=== PATIENT | male | born 1975 | race Caucasian/White ===

== ENCOUNTER 2019-05-28 06:09 | Emergency (ER) | payer BC, SELFPAY ==
[2019-05-28] MEDS ORDERED: Acetaminophen 500 MG TAB ONE (06:37)
[2019-05-28 06:39] LABS: #Basophils 0.1 thou/uL (0.0-0.2); #Lymphocytes 0.4 thou/uL (1.20-3.40); #Monocytes 0.5 thou/uL (0.11-0.59); #Neutrophils 10.3 thou/uL (1.40-6.50); %Basophils 0.8 % (0.0-1.0); %Eosinophils 0.1 % (0.0-10.0); %Lymphocytes 3.6 % (21.0-51.0); %Monocytes 4.6 % (0.0-10.0); Hemoglobin 15.1 g/dL (14.0-18.0); Mean Corpuscular HGB CONC 31.3 g/dL (32.0-36.0); Mean Corpuscular Hemoglobin 28.2 pg (27.0-31.0); Mean Platelet Volume 7.9 fL (7.4-10.4); Platelet Count 268 thou/uL (130-400); RBC Distribution Width 13.2 % (11.5-14.5); Red Blood Cell (RBC) Count 5.34 mill/uL (4.70-6.10); White Blood Cell (WBC) Count 11.3 thou/uL (4.8-10.8)
[2019-05-28] MEDS ORDERED: methylPREDNISolone Sod Succ/PF 125 MG/2 ML VIAL ONE (06:40)
[2019-05-28] MEDS ORDERED: Albuterol Sulfate 2.5 mg/0.5 ml Neb ONE (06:40)
[2019-05-28] MEDS ORDERED: Sodium Chloride For Inhalation 0.9% 3 ML NEB ONE ×2 (06:40→06:44)
[2019-05-28] MEDS ORDERED: Lactated Ringer's 1,000 ML ONE (06:51)
[2019-05-28 07:17] LABS: Globulin 3.5 g/dL (2.4-3.5)
[2019-05-28 07:22] LABS: AST (SGOT) 36 U/L (5-34); Estimated GFR-MDRD 7
[2019-05-28] MEDS ORDERED: Oseltamivir 75 MG CAP ONE (07:39)
--- NOTE | 2019-05-28 07:45 | RAD ---
EXAM: Single view of the chest HISTORY: Cough COMPARISON: 08/15/2014 FINDINGS: Single view of the chest shows a normal sized cardiomediastinal silhouette. There is no mello dence of consolidation, mass, or pleural effusion. The bones are unremarkable. IMPRESSION: No evidence of acute cardiopulmonary disease
[2019-05-28 07:58] LABS: Sodium 134 mmol/L (136-145)
[2019-05-28 07:59] LABS: Carbon Dioxide 26 mmol/L (22-29); Chloride 96 mmol/L (98-107)
[2019-05-28 08:00] LABS: BUN (Urea Nitrogen) 6 mg/dL (8.9-20.6)
[2019-05-28 08:01] LABS: Bilirubin, Total 0.3 mg/dL (0.2-1.2); Calcium 8.9 mg/dL (7.8-10.44); Glucose 133 mg/dL (70-105)
[2019-05-28 08:02] LABS: Alkaline Phosphatase 70 U/L (40-110); Protein, Total 7.5 g/dL (6.0-8.3)
[2019-05-28 08:03] LABS: ALT (SGPT) 50 U/L (8-55)
[2019-05-28 08:05] LABS: Anion Gap 16 mmol/L (10-20)
[2019-05-28 08:07] LABS: Calc. Creatinine Clearance 0 mL/min (70-130)
[2019-05-28] MEDS ORDERED: Cefepime 1 GM VIAL ONE (08:39)
[2019-05-28] MEDS ORDERED: Sodium Chloride 0.9% 100 ML ONE (08:39)
[2019-05-28] MEDS ORDERED: Sodium Chloride 0.9% 2,000 ML ONE (09:54)
== END 2019-05-28 09:23 | disposition short-term general hospital (02) ==
LOC: NAV ERS 06:09
DX: J11.1 Influenza due to unidentified influenza virus with other respiratory manifestations (principal); N17.9 Acute kidney failure, unspecified; R09.02 Hypoxemia; K21.9 Gastro-esophageal reflux disease without esophagitis; F17.210 Nicotine dependence, cigarettes, uncomplicated; Z79.51 Long term (current) use of inhaled steroids
CPT/HCPCS: 36415; 71045; 80053; 83605; 85025; 87040; 87077; 87149; 87186; 87804; 93005; 94760; J0692; J2930; J3490; J7050; J7120; J7611; J7620

== ENCOUNTER 2020-12-14 15:52 | Emergency (ER) | payer OTHER, SELFPAY ==
[2020-12-14] MEDS ORDERED: Ketorolac Tromethamine 60 MG/2 ML VIAL ONE (16:18)
== END 2020-12-14 17:00 | disposition home or self-care (01) ==
LOC: NAV ERS 15:52
DX: S23.41XA Sprain of ribs, initial encounter (principal); J45.909 Unspecified asthma, uncomplicated; K21.9 Gastro-esophageal reflux disease without esophagitis; I10 Essential (primary) hypertension; F17.210 Nicotine dependence, cigarettes, uncomplicated; Z79.82 Long term (current) use of aspirin; Z79.899 Other long term (current) drug therapy; W01.10XA Fall on same level from slipping, tripping and stumbling with subsequent striking against unspecified object, initial encounter
CPT/HCPCS: 96372; J1885

== ENCOUNTER 2022-10-25 20:49 | Emergency (ER) | payer BC, SELFPAY | END 2022-10-25 22:20 | disposition home or self-care (01) | LOC: NAV ERS 20:49 | DX: B34.9 Viral infection, unspecified (principal); I10 Essential (primary) hypertension; J44.9 Chronic obstructive pulmonary disease, unspecified; K21.9 Gastro-esophageal reflux disease without esophagitis; F17.210 Nicotine dependence, cigarettes, uncomplicated; Z20.822 Contact with and (suspected) exposure to COVID-19; Z79.82 Long term (current) use of aspirin; Z79.899 Other long term (current) drug therapy | CPT/HCPCS: 71046; 87804; U0003; U0005 ==

== ENCOUNTER 2024-01-23 18:08 | Emergency (ER) | payer BC, SELFPAY | END 2024-01-23 18:55 | disposition home or self-care (01) | LOC: NAV ERS 18:08 | DX: K59.00 Constipation, unspecified (principal); I10 Essential (primary) hypertension; F17.210 Nicotine dependence, cigarettes, uncomplicated; Z79.899 Other long term (current) drug therapy | CPT/HCPCS: 99283 ==

== ENCOUNTER 2024-01-28 12:00 | Emergency (ER) | payer OTHER, SELFPAY ==
[~2024-01-28 12:00] MED LIST: Iopamidol 370 76% 100 ML VIAL ONE
[2024-01-28 13:12] LABS: Band 1 % (5-11); Eosinophils 2 % (0-10); Hematocrit 52.5 % (42.0-52.0); Hemoglobin 16.8 g/dL (14.0-18.0); Lymphocytes 24 % (21-51); MDiff Complete? YES; Mean Corpuscular HGB CONC 31.9 g/dL (32.0-36.0); Mean Corpuscular Hemoglobin 28.4 pg (27.0-31.0); Mean Corpuscular Volume 88.9 fl (78.0-98.0); Mean Platelet Volume 7.7 fL (7.4-10.4); Monocytes 8 % (0-10); Neutrophil 64 % (42-75); Platelet Adequacy Comment Appears Adequate; Platelet Count 241 10x3/uL (130-400); RBC Distribution Width 11.5 % (11.5-14.5); Red Blood Cell (RBC) Count 5.91 mill/uL (4.70-6.10); White Blood Cell (WBC) Count 9.3 10x3/uL (4.8-10.8)
[2024-01-28] MEDS ORDERED: Sodium Chloride 0.9% 1,000 ML ONE (13:15)
[2024-01-28] MEDS ORDERED: Ketorolac Tromethamine 30 MG (1 mL) VIAL ONE (13:15)
[2024-01-28] MEDS ORDERED: Ondansetron PF 4 MG/2 ML Vial ONE (13:15)
[2024-01-28 13:25] LABS: ALT (SGPT) 30 U/L (8-55); AST (SGOT) 22 U/L (5-34); Alkaline Phosphatase 85 U/L (40-110); Anion Gap 15 mmol/L (10-20); BUN (Urea Nitrogen) 12 mg/dL (8.9-20.6); Bilirubin, Total 0.3 mg/dL (0.2-1.2); Calc. Creatinine Clearance 0 mL/min (70-130); Calcium 10.1 mg/dL (7.8-10.44); Carbon Dioxide 26 mmol/L (22-29); Chloride 95 mmol/L (98-107); Estimated GFR 107; Globulin 4.5 g/dL (2.4-3.5); Glucose 91 mg/dL (70-105); Lipase 92 U/L (8-78); Potassium 4.2 mmol/L (3.5-5.1); Protein, Total 8.5 g/dL (6.0-8.3); Sodium 132 mmol/L (136-145)
[2024-01-28 13:58] LABS: Bilirubin Negative (Negative); Blood, Urine Negative (Negative); Clarity Clear (Clear); Glucose, Urine (Dipstick) Negative (Negative); Ketone, Urine Negative (Negative); Leukocyte Negative (Negative); Nitrite Negative (Negative); Protein, Urine (Dipstick) Negative (Neg-Trace); Specific Gravity, Urine 1.015 (1.005-1.030); Urobilinogen 0.2 mg/dL (Less than 2); pH, Urine 7.5 (5.0-9.0)
[2024-01-28 14:03] LABS: Urine Culture Reflex No No
[2024-01-28 14:04] LABS: Bacteria/HPF Rare-Few HPF (None Seen); CAUTI Indications for Culture Pelvic or flank pain; RBC/HPF None Seen HPF (0-3); WBC/HPF None Seen HPF (0-3)
[2024-01-28 14:47] LABS: Cardiac Risk 5.5 (Less than 4.5)
[2024-01-28] MEDS ORDERED: Morphine 4 MG/ML VIAL ONE (15:36)
== END 2024-01-28 16:41 | disposition short-term general hospital (02) ==
LOC: NAV ERS 12:00
DX: K85.90 Acute pancreatitis without necrosis or infection, unspecified (principal); J44.9 Chronic obstructive pulmonary disease, unspecified; I10 Essential (primary) hypertension; F17.210 Nicotine dependence, cigarettes, uncomplicated; Z79.82 Long term (current) use of aspirin; Z79.899 Other long term (current) drug therapy
CPT/HCPCS: 74177; 80061; 81001; 83690; 96374; 96375; J1885; J2270; J2405; J7050; Q9967

== ENCOUNTER 2025-05-11 11:37 | Emergency (ER) | payer SELFPAY ==
[2025-05-11] MEDS ORDERED: Naproxen 500 MG TAB ONE (12:05)
== END 2025-05-11 13:25 | disposition home or self-care (01) ==
LOC: NAV ERS 11:37
DX: S46.911A Strain of unspecified muscle, fascia and tendon at shoulder and upper arm level, right arm, initial encounter (principal); J44.89 Other specified chronic obstructive pulmonary disease; I10 Essential (primary) hypertension; F17.290 Nicotine dependence, other tobacco product, uncomplicated; F17.210 Nicotine dependence, cigarettes, uncomplicated; Z79.82 Long term (current) use of aspirin; Z79.899 Other long term (current) drug therapy; W01.10XA Fall on same level from slipping, tripping and stumbling with subsequent striking against unspecified object, initial encounter
CPT/HCPCS: 99283